=== PATIENT | male | born 1990 | race Two or more races ===

== ENCOUNTER 2017-10-21 08:54 | Emergency (ER) | payer MEDICAID, OTHER ==
[~2017-10-21] VITALS: Ht 167.6 cm; Wt 74.9 kg
[2017-10-21 09:05] VITALS: BP 116/78
[2017-10-21] MEDS ORDERED: KETOROLAC TROMETH 60MG/2ML VIAL IM ONE (10:45)
== END 2017-10-21 11:12 | disposition home or self-care (01) ==
LOC: ER 08:54
DX: M54.31 Sciatica, right side (principal)
CPT/HCPCS: 96372; 99283; J1885; 93005